=== PATIENT | female | born 1960 | race African-American/Black ===

== ENCOUNTER 2024-08-14 12:06 | Emergency (ER) | payer MEDICARE, OTHER, SELFPAY ==
[2024-08-14] VITALS (18 sets, daily range): BP systolic 148–219; BP diastolic 75–106; PULSE 99–105; RESP 18; TEMP 36.4; O2SAT 98–100; BMI 28.4
--- NOTE | 2024-08-14 12:31 | DI.MRI.S_ITS ---
PROCEDURE: MR HEAD/BRAIN WO CON INDICATIONS: L leg weak, ? CVA 1 month ago TECHNIQUE: Non-contrast axial T1 spin echo, axial T2 fast spin echo, sagittal and axial FLAIR, coronal T2 fast spin echo, axial gradient echo, axial diffusion and ADC through the brain. COMPARISON: None. FINDINGS: Image quality: Excellent. CSF spaces: Ventricles appear symmetric in size and shape. Basal cisterns are patent. No extra-axial fluid collections. Brain: No intracranial bleeds or mass effects. There is cerebral volume loss for age. There are periventricular and deep white matter chronic small vessel ischemic changes. Brainstem appears normal. Diffusion-weighted images show no acute infarct. No chronic ischemic insults. Normal intravascular flow voids are present. Skull and face: Calvarial bone marrow is normal in signal. Orbits are normal. Sinuses: Sinuses and mastoids are clear. IMPRESSION: 1. No acute infarction. No intracranial bleed, midline shift or mass effect. 2. Age related volume loss and mild white matter chronic small vessel ischemic changes. Dictated by: Rodrick Douglass M.D. on 08/14/2024 at 14:01 Approved by: Rodrick Douglass M.D. on 08/14/2024 at 14:02
[2024-08-14 12:57] LABS: Add Manual Diff / Slide Review NO; Basophils Absolute Auto 100 /uL (0-100); Eosinophils Absolute Auto 100 /uL (0-450); Eosinophils Percent Auto 2.6 % (2-4); Hematocrit 29.6 % (36-46); Hemoglobin 9.8 g/dL (12.0-16.0); Lymphocytes Absolute Auto 1500 /uL (1100-4500); Lymphocytes Percent Auto 27.2 % (25-40); Mean Corpuscular HGB Conc 33.1 % (30-36); Mean Corpuscular Hemoglobin 28.6 PG (26-34); Mean Corpuscular Volume 86.4 fL (80-100); Monocytes Absolute Auto 400 /uL (0-900); Monocytes Percent Auto 6.6 % (3-14); Neutrophils Absolute Auto 3400 /uL (1500-7000); Neutrophils Percent Auto 62.6 % (50-75); Platelet Count 324 X10^3/uL (150-400); Red Blood Cell Count 3.42 X10^6/uL (4.0-5.2); White Blood Cell Count 5.4 X10^3/uL (4.5-11.0)
[2024-08-14] MEDS: diazePAM 10 MG/2 ML SYRINGE 5 MG IV (13:11)
[2024-08-14 13:12] LABS: Alanine Aminotransferase 18 IU/L (<35); Albumin 4.1 g/dL (3.5-5.0); Albumin Globulin Ratio 1.1 (1.0-2.8); Alkaline Phosphatase 103 U/L (38-126); Aspartate Aminotransferase 25 IU/L (14-36); BUN Creatinine Ratio 17.3 (6-22); Bilirubin Total 0.6 mg/dL (0.2-1.3); Blood Urea Nitrogen 32 mg/dL (7-17); Carbon Dioxide 23 mmol/L (22-32); Estimated Glomerular Filt Rate 30 mL/min (>60); Globulin 3.7 g/dL (1.7-4.1); HEMOLYSIS < 15 (0-50); Total Protein 7.8 g/dL (6.3-8.2)
[2024-08-14 13:14] LABS: Calcium 9.2 mg/dL (8.4-10.2); Chloride 105 mmol/L (98-107); Cholesterol 276 mg/dL (140-199); Glucose 236 mg/dL (70-99); HDL Cholesterol 49 mg/dL (40-60); LDL Cholesterol Calculated 185 mg/dL (<100); Potassium 4.3 mmol/L (3.4-5.1); Sodium 136 mmol/L (137-145); Triglycerides 211 mg/dL (35-150)
--- NOTE | 2024-08-14 13:53 | EKG_ITS ---
[place] [id number] [place] [id number] Test Date: 2024-08-14 Pat Name: Makayla Williamson Department: Room: Gender: Female Top Loader: HUSSAIN : 1960 Requested By: Order Number: [id number] Reading MD: Krzysztof Foster MD Measurements Intervals [place] Rate: 100 P: 49 UT: 152 QRS: 21 QRSD: 94 T: 99 QT: 378 QTc: 487 Interpretive Statements Normal sinus rhythm Minimal voltage criteria for LVH, may be normal variant ( [place] product ) Nonspecific ST and T wave abnormality Electronically Signed On 08-14-2024 14:39:07 PDT by Krzysztof Foster MD
--- NOTE | 2024-08-14 13:58 | ED_ITS ---
HPI - Neuro Symptoms/Deficit General Chief Complaint: Neuro Symptoms/Deficit Stated Complaint: Falling, Back pain Numbness in left leg x 2 weeks Time Seen by Provider: 08/14/24 12:07 Source: patient and family Mode of arrival: Wheelchair History of Present Illness HPI Narrative: 64-year-old woman who currently is in the middle of transferring from [facility] to Medicare and working out which provider she needs to see an who can get into. She presents today complaining of frequent falls because her left leg is giving out. This is gotten worse over the last month. She does complain of some back pain but describes it as 2/10. She has not had prior documented back injuries or previous surgeries. Apparently last year she had an incidence of strep throat that ended up requiring CT with the acute kidney injury unclear if this was due to a strep related glomerulonephritis or CT contrast allergy. We will avoid contrast for the time being. On further questioning she states that she has been having some slight word-finding difficulties does not note that her left arm has had any weakness, has slight paresthesia down the posterior portion of her left leg. As she is getting into bed, she has to physically lift up her left leg to move it into bed. No fevers, chills, abdominal pain. No recent injuries with the instability and falls that she has experienced over the last month. On Anticoagulants: No Related Data Previous Rx's ?Medication ?Instructions ?Recorded amlodipine 5 mg tablet 5 mg PO DAILY #90 tabs 08/14 oxycodone-acetaminophen 5 mg-325 1 tab PO Q6H PRN pain #14 tabs 08/14/24 mg tablet Allergies Allergy/AdvReac Type Severity Reaction Status Date / Time Iodinated Contrast Media Allergy Severe Acute Verified 08/14/24 12:21 Kidney Injury aspirin AdvReac GI Upset Verified 08/14/24 12:21 Review of Systems Review of Systems Narrative: Pertinent positive and negative findings as per HPI Hematologic/Lymphatic On Anticoagulants: No Patient History Social History Smoking Status: Never smoker Smoking Status: Never smoker Alcohol type: wine Exam Initial Vital Signs Initial Vital Signs: Vital Signs Pulse Rate 100 H 08/14/24 12:14 Blood Pressure 148/75 H 08/14/24 12:14 Pulse Oximetry 99 08/14/24 12:14 General: Healthy appearing, in no acute distress. Able to give a complete and coherent history. Well-nourished well-developed HEENT: Moist mucous membranes, normal sclera with reactive pupils, Respiratory: Lungs are clear to auscultation, no wheezing no rales no rhonchi. Full and symmetrical air movement Cardiac: Regular rate and rhythm no murmurs no bruits Abdomen: Soft, nontender, no rebound or guarding, no flank pain Skin: Warm and dry, no rashes Neurologic: Left lower extremity weakness, 4/5, slight decrease in sensation in the posterior portion of the leg. She has dorsiflexion and plantar flexion with good strength and not causing back pain. Straight leg testing is negative. Remainder of neurologic exam is unremarkable. NIH=1 due to the left leg weakness Extremities: No trauma, well perfused Psych: Cooperative, appropriate insight and affect Course Orders Ordered: ED Orders 08/14/24 12:31 MR head/brain wo con Stat Complete Blood Count AUTO DIFF Stat Comprehensive Metabolic Panel Stat Lipid Panel Stat EKG-12 Lead Stat 08/14/24 14:13 MR lumbar spine wo con Stat Discontinued Medications Amlodipine Besylate (Amlodipine 5 Mg Tablet) 5 mg PO NOW ONE Stop: 08/14/24 15:57 Last Admin: 08/14/24 16:02 Dose: 5 mg Diazepam (Diazepam 10 Mg/2 Ml Syringe) 5 mg IV NOW ONE Stop: 08/14/24 12:33 Last Admin: 08/14/24 13:11 Dose: 5 mg Documented By: Oxycodone/Acetaminophen (Oxycodone/Acetaminophen 5/325 Tablet) 1 tab PO NOW ONE Stop: 08/14/24 15:46 Last Admin: 08/14/24 15:53 Dose: 1 tab Vital Signs Vital signs: Vital Signs - 8 hr 08/14/24 12:14 08/14/24 12:14 08/14/24 12:21 Temperature 97.5 F L Pulse Rate 100 H 102 H Respiratory Rate 18 Blood Pressure 148/75 H 148/75 H Pulse Oximetry 99 99 Oxygen Delivery Method Room Air 08/14/24 12:25 08/14/24 12:25 08/14/24 12:30 Temperature Pulse Rate 105 H Respiratory Rate Blood Pressure 182/87 H 188/91 H Pulse Oximetry 100 Oxygen Delivery Method Room Air 08/14/24 12:30 08/14/24 13:00 08/14/24 13:00 Temperature Pulse Rate 100 H 103 H Respiratory Rate Blood Pressure 188/84 H Pulse Oximetry 100 98 Oxygen Delivery Method 08/14/24 13:44 08/14/24 13:45 08/14/24 13:45 Temperature Pulse Rate 104 H 102 H Respiratory Rate Blood Pressure 180/88 H Pulse Oximetry 99 100 Oxygen Delivery Method 08/14/24 14:00 08/14/24 14:00 08/14/24 14:01 Temperature Pulse Rate 102 H Respiratory Rate Blood Pressure 210/100 H 208/92 H Pulse Oximetry 100 Oxygen Delivery Method 08/14/24 14:01 08/14/24 14:02 08/14/24 14:02 Temperature Pulse Rate 101 H 101 H Respiratory Rate Blood Pressure 185/91 H Pulse Oximetry 99 100 Oxygen Delivery Method Room Air 08/14/24 14:34 08/14/24 15:00 08/14/24 15:00 Temperature Pulse Rate 101 H 103 H Respiratory Rate Blood Pressure 169/106 H Pulse Oximetry 99 100 Oxygen Delivery Method 08/14/24 15:30 08/14/24 15:30 08/14/24 15:55 Temperature Pulse Rate 101 H Respiratory Rate Blood Pressure 219/102 H 209/103 H Pulse Oximetry 99 Oxygen Delivery Method Room Air 08/14/24 15:55 Temperature Pulse Rate 99 H Respiratory Rate Blood Pressure Pulse Oximetry 98 Oxygen Delivery Method MDM - Neuro Symptoms/Deficit Lab Data 08/14/24 12:31 08/14/24 12:31 Labs: Lab Results 08/14/24 Range/Units 12:31 WBC 5.4 (4.5-11.0) X10^3/uL RBC 3.42 L (4.0-5.2) X10^6/uL Hgb 9.8 L (12.0-16.0) g/dL Hct 29.6 L (36-46) % MCV 86.4 (80-100) fL MCH 28.6 (26-34) PG MCHC 33.1 (30-36) % RDW 13.0 (11.6-14.8) % Plt Count 324 (150-400) X10^3/uL Neut % (Auto) 62.6 (50-75) % Lymph % (Auto) 27.2 (25-40) % [place] % (Auto) 6.6 (3-14) % Eos % (Auto) 2.6 (2-4) % Baso % (Auto) 1.0 (0-2) % Neut # (Auto) 3400 (4836-8697) /uL Lymph # (Auto) 1500 (8144-7830) /uL [place] # (Auto) 400 (0-900) /uL Eos # (Auto) 100 (0-450) /uL Baso # (Auto) 100 (0-100) /uL Sodium 136 L (137-145) mmol/L Potassium 4.3 (3.4-5.1) mmol/L Chloride 105 (98-107) mmol/L Carbon Dioxide 23 (22-32) mmol/L BUN 32 H (7-17) mg/dL Creatinine 1.85 H (0.52-1.04) mg/dL Estimated GFR 30 L (>60) mL/min BUN/Creatinine Ratio 17.3 (6-22) Glucose 236 H (70-99) mg/dL Calcium 9.2 (8.4-10.2) mg/dL Total Bilirubin 0.6 (0.2-1.3) mg/dL AST 25 (14-36) IU/L ALT 18 (<35) IU/L Alkaline Phosphatase 103 (38-126) U/L Total Protein 7.8 (6.3-8.2) g/dL Albumin 4.1 (3.5-5.0) g/dL Globulin 3.7 (1.7-4.1) g/dL Albumin/Globulin Ratio 1.1 (1.0-2.8) Triglycerides 211 H (35-150) mg/dL Cholesterol 276 H (140-199) mg/dL LDL Cholesterol, Calc 185 H (<100) mg/dL HDL Cholesterol 49 (40-60) mg/dL Imaging Data MRI brain: Radiologist's Impression: PROCEDURE: MR HEAD/BRAIN WO CON INDICATIONS: L leg weak, ? CVA 1 month ago TECHNIQUE: Non-contrast axial T1 spin echo, axial T2 fast spin echo, sagittal and axial FLAIR, coronal T2 fast spin echo, axial gradient echo, axial diffusion and ADC through the brain. COMPARISON: None. FINDINGS: Image quality: Excellent. CSF spaces: Ventricles appear symmetric in size and shape. Basal cisterns are patent. No extra-axial fluid collections. Brain: No intracranial bleeds or mass effects. There is cerebral volume loss for age. There are periventricular and deep white matter chronic small vessel ischemic changes. Brainstem appears normal. Diffusion-weighted images show no acute infarct. No chronic ischemic insults. Normal intravascular flow voids are present. Skull and face: Calvarial bone marrow is normal in signal. Orbits are normal. Sinuses: Sinuses and mastoids are clear. IMPRESSION: 1. No acute infarction. No intracranial bleed, midline shift or mass effect. 2. Age related volume loss and mild white matter chronic small vessel ischemic changes. Dictated by: Rodrick Douglass M.D. on 08/14/2024 at 14:01 MR Lumbar: Radiologist's Impression: PROCEDURE: MR LUMBAR SPINE WO CON INDICATIONS: progressive left leg weakness TECHNIQUE: Noncontrast sagittal T1 spin echo and T2 fast echo, sagittal STIR, and T2 fast spin echo through the lumbar spine. In cases with scoliosis, additional coronal T2 fast spin echo may be performed. COMPARISON: None. FINDINGS: Image quality: Excellent. Alignment and Curvature: There is normal bony alignment. Bone Marrow: Marrow is of normal overall signal. No acute vertebral body compression fractures. Spinal Cord: Conus medullaris terminates at the L1 level. Visualized cord demonstrates normal signal and size. Paraspinous Soft Tissues: No paravertebral masses. T12-L1: Normal appearance. L1-L2: Normal appearance. L2-L3: Bilateral facet arthrosis is seen. Mild disc desiccation. Diffuse disc bulge with mild central canal stenosis and mild left-sided neural foraminal narrowing. L3-L4: Mild disc desiccation. Bilateral facet arthrosis is seen. No significant central canal stenosis or neural foraminal narrowing. L4-L5: Disc desiccation. Broad-based disc bulge and bilateral facet arthrosis with hypertrophy of ligamentum flavum. Mild central canal stenosis and moderate bilateral neural foraminal narrowing is seen. L5-S1: There is disc desiccation. Broad-based, and more left-sided disc bulge with bilateral facet arthrosis causing moderate left-sided neural foraminal narrowing and compression of bilateral L5 nerve roots. No significant central canal stenosis. IMPRESSION: 1. 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 2. No marrow edema. No acute compression fracture or spondylolisthesis. Dictated by: Rodrick Douglass M.D. on 08/14/2024 at 15:02 MDM Narrative Medical decision making narrative: CC: Left leg weakness for a month Complicating co-morbidities: Not currently on any medications, intermittent low back pain without any previous surgeries or complications Data collected from: patient, daughter Social determinants of health that may influence the patients condition: Currently transitioning from [facility] to Medicare it sounds like she does not currently have a primary care physician Differential considered: Stroke, progressive weakness secondary to lumbar pathology with neuropathy Exam documented above, pertinent findings include: Pleasant woman no acute distress, needs to lift her leg up onto the bed, difficulty walking as she has a slight dragged with the left leg, remainder of neurologic exam is unremarkable Lab Test results independently reviewed as above. Pertinent findings: CBC shows normal white count, hemoglobin is 9.8 and 29.6. No priors for comparison, platelets are appropriate Chemistries show creatinine of 1.85, again no records are available but patient remembers hearing something about ?the 2.? In regard to renal function, glucose is elevated at 236 Elevated triglycerides total cholesterol, LDL cholesterol, HDL is 49 Independently reviewed EKG: Imaging studies independently reviewed: MR brain Diffusion-weighted images show no acute infarct. No chronic ischemic insults. Normal intravascular flow voids are present. MR lumbar spine . 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 No marrow edema. No acute compression fracture or spondylolisthesis. Treatments: 5 mg of amlodipine, 1 Percocet Discussion: 64-year-old woman who comes in complaining of month of progressive left lower extremity weakness to the point that shift to lift her leg up to move onto the bed. She is having some low back pain but not dramatic. In further questioning there was concern that she may have had a stroke. MRI of the brain does not confirm new or old stroke. Attention then went to lumbar spine pathology causing the progressive paresthesia and weakness of the left lower extremity. MRI of the lumbar spine does suggest enough pathology to explain the we can left lower extremity. There was no indication for acute surgical intervention, and no indication of cauda equina syndrome. She does need outpatient spinal orthopedic consultation sooner rather than later. In terms of additional follow up: You need to establish primary care physician, you can call [facility] at [phone], explain your insurance coverage and see who might have open spaces available Your blood pressure is significantly elevated, you need to be back on blood pressure medication. I have given you a prescription for amlodipine 5 mg daily. You need to buy a blood pressure cuff and check your blood pressures on a regular basis to review with your new primary care physician. Your kidney function shows some kidney injury. You need to discuss this with your new primary care doctor. I would recommend avoiding nonsteroidals like Aleve or ibuprofen Your blood sugar is elevated, you likely will benefit from further evaluation and medical treatment for your type 2 diabetes. In the meantime avoiding obvious simple sugars like soda and juice can be helpful Regarding the back pain, I have given you a small prescription for Percocet. We talked about addictive potential. Having somebody else hold the medication for you so that discussion can be had when you feel pain is enough to have a narcotic medication can be helpful. It will cause constipation, please by a stool softener when you meat pickler this prescription I would strongly recommend using a cane so that you do not fall due to your left leg being weak You need to see a orthopedic surgeon or radiologic electronic specialist. [facility] does have spine specialists available, you can contact them at [phone] and asked to schedule an appointment with a radiologic electronic specialist. Please let them know that you have had a lumbar MRI at [facility] There are spine specialists in [facility], feel free to look up those clinics if you are unable to schedule an appointment at [facility] Discharge Plan Departure Patient Disposition: Home Clinical Impression: Left leg weakness, Falling, Hypertension, Chronic kidney disease, Hyperlipidemia Activity Restrictions/Additional Instructions: In terms of additional follow up: You need to establish primary care physician, you can call [facility] at [phone], explain your insurance coverage and see who might have open spaces available Your blood pressure is significantly elevated, you need to be back on blood pressure medication. I have given you a prescription for amlodipine 5 mg daily. You need to buy a blood pressure cuff and check your blood pressures on a regular basis to review with your new primary care physician. Your kidney function shows some kidney injury. You need to discuss this with your new primary care doctor. I would recommend avoiding nonsteroidals like Aleve or ibuprofen Your blood sugar is elevated, you likely will benefit from further evaluation and medical treatment for your type 2 diabetes. In the meantime avoiding obvious simple sugars like soda and juice can be helpful Regarding the back pain, I have given you a small prescription for Percocet. We talked about addictive potential. Having somebody else hold the medication for you so that discussion can be had when you feel pain is enough to have a narcotic medication can be helpful. It will cause constipation, please by a stool softener when you meat pickler this prescription I would strongly recommend using a cane so that you do not fall due to your left leg being weak You need to see a orthopedic surgeon or radiologic electronic specialist. [facility] does have spine specialists available, you can contact them at [phone] and asked to schedule an appointment with a radiologic electronic specialist. Please let them know that you have had a lumbar MRI at [facility] There are spine specialists in [facility], feel free to look up those clinics if you are unable to schedule an appointment at [facility] All prescriptions were sent to [facility] in [place] If you find that you are getting worse or develop any new symptoms, please feel free to return to the emergency department for further evaluation. Prescriptions: New oxycodone-acetaminophen 5-325 mg tablet 1 tab PO Q6H PRN (Reason: pain) Qty: 14 0RF amlodipine 5 mg tablet 5 mg PO DAILY Qty: 90 1RF Referrals: ProviderZechariah [Primary Care Provider, Family Practice] Stand Alone Forms: Patient Portal/API
--- NOTE | 2024-08-14 14:03 | PC.NURSE ---
BP 185/91, Dr Butler notified.
--- NOTE | 2024-08-14 14:13 | DI.MRI.S_ITS ---
PROCEDURE: MR LUMBAR SPINE WO CON INDICATIONS: progressive left leg weakness TECHNIQUE: Noncontrast sagittal T1 spin echo and T2 fast echo, sagittal STIR, and T2 fast spin echo through the lumbar spine. In cases with scoliosis, additional coronal T2 fast spin echo may be performed. COMPARISON: None. FINDINGS: Image quality: Excellent. Alignment and Curvature: There is normal bony alignment. Bone Marrow: Marrow is of normal overall signal. No acute vertebral body compression fractures. Spinal Cord: Conus medullaris terminates at the L1 level. Visualized cord demonstrates normal signal and size. Paraspinous Soft Tissues: No paravertebral masses. T12-L1: Normal appearance. L1-L2: Normal appearance. L2-L3: Bilateral facet arthrosis is seen. Mild disc desiccation. Diffuse disc bulge with mild central canal stenosis and mild left-sided neural foraminal narrowing. L3-L4: Mild disc desiccation. Bilateral facet arthrosis is seen. No significant central canal stenosis or neural foraminal narrowing. L4-L5: Disc desiccation. Broad-based disc bulge and bilateral facet arthrosis with hypertrophy of ligamentum flavum. Mild central canal stenosis and moderate bilateral neural foraminal narrowing is seen. L5-S1: There is disc desiccation. Broad-based, and more left-sided disc bulge with bilateral facet arthrosis causing moderate left-sided neural foraminal narrowing and compression of bilateral L5 nerve roots. No significant central canal stenosis. IMPRESSION: 1. 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 2. No marrow edema. No acute compression fracture or spondylolisthesis. Dictated by: Rodrick Douglass M.D. on 08/14/2024 at 15:02 Approved by: Rodrick Douglass M.D. on 08/14/2024 at 15:27
--- NOTE | 2024-08-14 15:44 | PC.NURSE ---
pt having back pain, notified.
[2024-08-14] MEDS: OXYCODONE/ACETAMINOPHEN 5/325 TABLET 1 TAB PO (15:53)
--- NOTE | 2024-08-14 15:57 | PC.NURSE ---
BP 209/103, Dr Butler notified.
[2024-08-14] MEDS: AMLODIPINE 5 MG TABLET PO (16:02)
== END 2024-08-14 17:03 | disposition home or self-care (01) ==
PROVIDERS: Emergency Provider Emergency Medicine
DX: R53.1 Weakness (principal); I10 Essential (primary) hypertension; R29.6 Repeated falls; N18.9 Chronic kidney disease, unspecified; E78.5 Hyperlipidemia, unspecified
CPT/HCPCS: 36415; 70551; 72148; 80053; 80061; 85025; 93005; 93010; 96374; 99284; J3360

== ENCOUNTER 2024-09-19 15:11 | Emergency (ER) | payer MEDICARE, OTHER, SELFPAY ==
[2024-09-19 15:24] VITALS: BP 182/96; PULSE 101; RESP 16; TEMP 36.4; O2SAT 100; BMI 25.0
--- NOTE | 2024-09-19 17:40 | DI.RAD.S_ITS ---
PROCEDURE: XR KNEE LT 3V INDICATIONS: swelling TECHNIQUE: 3 views of the knee were acquired. COMPARISON: None. FINDINGS: Bones: No fractures or dislocations. No suspicious bony lesions. Soft tissues: No joint effusion. No suspicious soft tissue calcifications. Moderate to heavy peripheral vascular calcification noted. IMPRESSION: No acute bony abnormality or significant effusion. Dictated by: Mary Erickson M.D. on 09/19/2024 at 19:05 Approved by: Mary Erickson M.D. on 09/19/2024 at 19:06
[2024-09-19] MEDS: OXYCODONE/ACETAMINOPHEN 5/325 TABLET 1 TAB PO (19:03)
--- NOTE | 2024-09-19 19:06 | ED_ITS ---
<Statement entered by Sd Cason MD - 10/11/24 07:32> I was personally available for consultation in the Department at the time the patient was seen HPI - Fall General Chief Complaint: Fall Stated Complaint: back pain, hard to walk-fell Time Seen by Provider: 09/19/24 17:10 Source: patient Mode of arrival: Ambulatory History of Present Illness HPI Narrative: 64-year-old female presents to the ED after 2 falls yesterday when her left knee gave out. Patient did fall on her knee, is having trouble with the knee constantly giving out. Patient is also complaining of continued lower back pain. No other new trauma or injury. Patient was seen in the ED on 08/14/2024 for lower back pain and knee pain. It appears that she is functionally today about the same as she was during that visit. She had an MRI of the lumbar spine which showed spondylitic changes and bilateral facet arthrosis throughout lumbar spine causing various degrees of central and canal stenosis and bilateral neural foraminal narrowing more notably at L4-5 and L5-S1 levels. No marrow edema. No acute compression fracture or spondylolisthesis. Patient is discharged home with pain control and recommendation for PC follow-up for further evaluation. Patient is in the process of trying to find a PCP and is requesting a list of providers today. Patient does endorse numbness, tingling which is baseline for her and not new. Related Data Previous Rx's ?Medication ?Instructions ?Recorded amlodipine 5 mg tablet 5 mg PO DAILY #90 tabs 08/14 oxycodone-acetaminophen 5 mg-325 1 tab PO Q6H PRN pain #14 tabs 08/14/24 mg tablet oxycodone-acetaminophen 5 mg-325 1 tab PO Q8H PRN pain #14 tabs 09/19/24 mg tablet (Percocet) Allergies Allergy/AdvReac Type Severity Reaction Status Date / Time Iodinated Contrast Media Allergy Severe Acute Verified 09/19/24 15:27 Kidney Injury empagliflozin (From Allergy Vomiting Verified 09/19/24 15:27 Jardiance) insulin lispro (From Humalog Allergy syncope Verified 09/19/24 15:27 U-100 Insulin) aspirin AdvReac GI Upset Verified 09/19/24 15:27 Review of Systems Constitutional Constitutional: Denies chills, Denies fatigue, Denies fever(s), Denies frequent falls, Denies lethargy and Denies weakness Eyes Eyes: Denies change in vision, Denies eye discharge, Denies irritation and Denies loss of vision ENT Ears, Nose, Mouth, and Throat: Denies change in voice, Denies dizziness, Denies neck pain, Denies sore throat and Denies throat swelling Cardiovascular Cardiovascular: Denies chest pain, Denies irregular heart rhythm, Denies lightheadedness, Denies palpitations, Denies dyspnea, Denies dyspnea on exertion and Denies orthopnea Respiratory Respiratory: Denies cough, Denies dyspnea, Denies dyspnea on exertion and Denies wheezing Gastrointestinal Gastrointestinal: Denies abdominal pain, Denies change in bowel habits, Denies diarrhea, Denies nausea and Denies vomiting Musculoskeletal Musculoskeletal: Reports back pain, Denies neck pain and Denies numbness Comments: Left knee pain Integumentary/Breasts Skin/Breast: Denies pruritus, Denies erythema, Denies rash and Denies wounds Neurologic Neurologic: Denies behavioral changes, Denies confusion, Denies dizziness, Denies frequent falls, Denies loss of vision, Denies numbness and Denies weakness Psychiatric Psychiatric: Denies anxiety, Denies behavioral changes, Denies confusion, Denies depression, Denies homicidal ideation and Denies suicidal ideation Endocrine Endocrine: Denies fatigue, Denies flushing and Denies palpitations Hematologic/Lymphatic Hematologic/Lymphatic: Denies easy bruising Allergic/Immunologic Allergic/Immunologic: Denies urticaria, Denies throat swelling and Denies wheezing Patient History Smoking Status: Never smoker Alcohol type: wine Exam Narrative Exam Narrative: Const General:?cooperative, healthy appearing and comfortable [facility] Head:?normal to inspection Ears:?hearing grossly normal bilaterally Nose:?external nose normal Face and sinus:?normal facial exam and sinuses nontender Mouth:?oral mucosae normal Throat:?posterior oropharynx normal Eyes General:?appearance normal, both eyes and all related structures Neck Neck:?normal visual inspection and no lymphadenopathy noted Resp Effort & Inspection:?normal respiratory effort Auscultation:?clear to auscultation bilaterally Cardio Rate:?regular rate Rhythm:?regular rhythm Musculoskeletal No knee swelling, tenderness to palpation, deformities, bruising noted on exam. Patient is having knee and is having to lift it up with her are hands. However, this is baseline for her for a long time. No midline tenderness to palpation. No paraspinal tenderness to palpation. Neuro General:?patient alert, patient awake and patient oriented x3 Initial Vital Signs Initial Vital Signs: Vital Signs Temperature 97.6 F 09/19/24 15:24 Pulse Rate 101 H 09/19/24 15:24 Respiratory Rate 16 09/19/24 15:24 Blood Pressure 182/96 H 09/19/24 15:24 Pulse Oximetry 100 09/19/24 15:24 Oxygen Delivery Method Room Air 09/19/24 15:24 Course Orders Ordered: ED Orders 09/19/24 17:40 XR knee LT 3V Stat Discontinued Medications Oxycodone/Acetaminophen (Oxycodone/Acetaminophen 5/325 Tablet) 1 tab PO NOW ONE Stop: 09/19/24 18:58 Last Admin: 09/19/24 19:03 Dose: 1 tab Documented By: MEKA Vital Signs Vital signs: Vital Signs - 8 hr 09/19/24 15:24 Temperature 97.6 F Pulse Rate 101 H Respiratory Rate 16 Blood Pressure 182/96 H Pulse Oximetry 100 Oxygen Delivery Method Room Air MDM - Fall MDM Narrative Medical decision making narrative: 64-year-old female presents to the ED after 2 falls yesterday when her left knee gave out. Will x-ray the knee to rule out fracture/dislocation. Otherwise, patient's functionality is at the same level with no further regression. Patient has been given resources for finding a new PCP. Pain medication prescribed. ED return precautions discussed with patient. Patient verbalized understanding. Medical records reviewed: Yes Discharge Plan Departure Patient Disposition: Home Clinical Impression: Knee pain Qualifiers: Chronicity: chronic Laterality: left Qualified Code(s): M25.562 - Pain in left knee Instructions: DI for Low Back Pain, How to Prevent Falls Activity Restrictions/Additional Instructions: You were evaluated in the emergency department for back and knee pain. Your x- ray was normal. You are being prescribed some pain medication. You have also been provided some resources to find a new primary care provider for follow-up. Return to the ED if you have worsening symptoms. Prescriptions: New oxycodone-acetaminophen [Percocet] 5-325 mg tablet 1 tab PO Q8H PRN (Reason: pain) Qty: 14 0RF No Action oxycodone-acetaminophen 5-325 mg tablet 1 tab PO Q6H PRN (Reason: pain) Qty: 14 0RF amlodipine 5 mg tablet 5 mg PO DAILY Qty: 90 1RF Referrals: ProviderZechariah [Primary Care Provider, Family Practice] Stand Alone Forms: Patient Portal/API
[2024-09-19 19:25] VITALS: BP 207/102; PULSE 105; RESP 17; O2SAT 100
== END 2024-09-19 19:33 | disposition home or self-care (01) ==
PROVIDERS: Emergency Provider Student in an Organized Health Care Education/Training Program
DX: M25.562 Pain in left knee (principal); W19.XXXA Unspecified fall, initial encounter
CPT/HCPCS: 73562; 99283

== ENCOUNTER 2024-12-05 16:12 | Emergency (ER) | payer MEDICARE, OTHER, SELFPAY ==
[2024-12-05] VITALS (20 sets, daily range): BP systolic 142–204; BP diastolic 72–98; PULSE 91–109; RESP 12–22; TEMP 36.8; O2SAT 97–100; BMI 26.3
--- NOTE | 2024-12-05 16:21 | DI.RAD.S_ITS ---
PROCEDURE: XR CHEST 1V INDICATIONS: Chest Pain TECHNIQUE: One view of the chest was acquired. COMPARISON: None. FINDINGS: Surgical changes and devices: None. Lungs and pleura: Lungs are clear. No pleural effusions or pneumothorax. Mediastinum: Mediastinal contours appear normal. Heart size is normal. Bones and chest wall: No suspicious bony lesions. Overlying soft tissues appear unremarkable. IMPRESSION: No acute cardiopulmonary abnormality is seen. Dictated by: Travis Ybarar M.D. on 12/05/2024 at 17:31 Approved by: Travis Ybarra M.D. on 12/05/2024 at 17:31
--- NOTE | 2024-12-05 16:33 | EKG_ITS ---
[address] [address] Test Date: 2024-12-05 Pat Name: Makayla Williamson Department: [facility] Room: Gender: Female [employer]: OMER : [id number] Requested By: Order Number: [id number] Reading MD: Krzysztof Foster MD Measurements Intervals [place] Rate: 107 P: 46 WV: 114 QRS: 25 QRSD: 98 T: 74 QT: 364 QTc: 485 Interpretive Statements Sinus tachycardia Electronically Signed On 12-05-2024 16:45:15 PDT by Krzysztof Foster MD
[2024-12-05 17:00] LABS: Add Manual Diff / Slide Review NO; Hematocrit 28.4 % (36-46); Hemoglobin 9.5 g/dL (12.0-16.0); Lymphocytes Absolute Auto 2500 /uL (1100-4500); Mean Corpuscular HGB Conc 33.4 % (30-36); Mean Corpuscular Hemoglobin 29.0 PG (26-34); Mean Corpuscular Volume 86.7 fL (80-100); Platelet Count 327 X10^3/uL (150-400)
[2024-12-05 17:09] LABS: INR 1.0 (0.9-1.3); Prothrombin Time 11.3 SECONDS (9.4-12.5)
[2024-12-05 17:11] LABS: PTT Partial Thromboplastin Tim 33 SECONDS (25.1-36.5)
[2024-12-05 17:13] LABS: Alanine Aminotransferase 27 IU/L (<35); Albumin 4.5 g/dL (3.5-5.0); Albumin Globulin Ratio 1.1 (1.0-2.8); Alkaline Phosphatase 80 U/L (38-126); Blood Urea Nitrogen 37 mg/dL (7-17); Calcium 9.6 mg/dL (8.4-10.2); Carbon Dioxide 21 mmol/L (22-32); Chloride 102 mmol/L (98-107); Creatine Kinase 69 U/L (30-135); Estimated Glomerular Filt Rate 32 mL/min (>60); Globulin 4.0 g/dL (1.7-4.1); Glucose 123 mg/dL (70-99); HEMOLYSIS < 15 (0-50); Lipase 363 U/L (23-300); Magnesium 2.4 mg/dL (1.6-2.3); Potassium 4.4 mmol/L (3.4-5.1); Sodium 136 mmol/L (137-145); Total Protein 8.5 g/dL (6.3-8.2)
--- NOTE | 2024-12-05 17:18 | PC.NURSE ---
Patient experiencing left leg weakness and unable to ambulate. Swelling noted to both legs.
--- NOTE | 2024-12-05 17:24 | PC.NURSE ---
Patient was eating popcorn. Pt informed to not eat until the doctor sees her. NPO at 1725.
[2024-12-05 17:25] LABS: NT-proBNP (BNP-Adult 18+) 299 pg/mL (<125); Troponin I < 0.012 ng/mL (0.01-0.034)
--- NOTE | 2024-12-05 17:33 | ED.WEAKNESS ---
HPI - Weakness <Kristen Dominguez, DO - Last Filed: 12/08/24 20:34> General Chief complaint: Weakness Stated complaint: Cant walk, hands weak, Lt leg numb, Rt leg is weak Time Seen by Provider: 12/05/24 16:19 Source: patient, family, RN notes reviewed and old records reviewed Mode of arrival: Wheelchair Limitations: no limitations History of Present Illness HPI Narrative: 64-year-old female with a history of hypertension, possible prior glomerular nephritis versus CT cross dressed allergy. Patient presents with the acute on chronic back pain that radiates down her left leg now of the right. She notes increasing difficulty with ambulation and can no longer lift or move her left lower extremity. She states pain in her left leg has improved but she still has paresthesias and numbness. She notes does still have some right lower extremity pain but can use that leg and still has some strength but has some difficulty standing. She states family has been assisting her this week to get even to the bathroom. She states she was walking normally a proximally a week ago. Initial onset of back pain and symptoms was in June or July she did have an MRI at that time and was started on gabapentin. Patient states no fevers or chills. No headaches, she denies any chest pain or shortness of breath. No new speech changes no nausea or vomiting. She denies any saddle anesthesia, new bowel or bladder incontinence. She notes feels like she has a little bit of weakness in her hands but has been moving her arms without issue she states she does sometimes drop objects. Patient states home medications include amlodipine, gabapentin and Percocet PRN. She states she has had prior cerclage, tubal ligation, cataract surgery but no back or brain surgeries in the past. Reports an allergy to contrast dye that she had loss of renal function [address]. Reports an allergy to aspirin, Humalog and Jardiance. No tobacco, alcohol or recreational drugs. Related Data Previous Rx's ?Medication ?Instructions ?Recorded amlodipine 5 mg tablet 5 mg PO DAILY #90 tabs 08/14/24 DISABLED PARKING PERMIT #1 ea 10/04/24 DISABLED PARKING PERMIT #1 ea 10/04/24 oxycodone-acetaminophen 10 mg-325 1 tab PO Q6H PRN pain #20 tabs 12/07/24 mg tablet Allergies Allergy/AdvReac Type Severity Reaction Status Date / Time Iodinated Contrast Media Allergy Severe Acute Verified 12/05/24 16:22 Kidney Injury aspirin AdvReac GI Upset Verified 12/05/24 16:22 empagliflozin (From AdvReac Vomiting Verified 12/05/24 16:22 Jardiance) insulin lispro (From Humalog AdvReac syncope Verified 12/05/24 16:22 U-100 Insulin) Review of Systems <Kristen Dominguez DO - Last Filed: 12/08/24 20:34> Review of Systems ROS Unobtainable: All systems reviewed & are unremarkable except as noted in HPI and below Patient History <Kristen Dominguez DO - Last Filed: 12/08/24 20:34> Medical History Bilateral hand numbness Frequent falls Asthma (~1984) Partial blindness Frequent UTI Diabetic nephropathy associated with type 2 diabetes mellitus Combined hyperlipidemia associated with type 2 diabetes mellitus Diabetes type 2 Hx of colonic polyps Acute low back pain with right-sided sciatica Surgical History Anesthesia History of tubal ligation (~11/03/96) History of cataract removal with insertion of prosthetic lens (~2019) History of cervical cerclage History of tonsillectomy Family History Father Cancer Mother History of heart disease Grandfather Cancer Grandmother History of heart disease Grandfather History of heart disease Social History household members: children Smoking Status: Never smoker Smoking Status: Never smoker Alcohol type: wine Exam <Kristen Dominguez DO - Last Filed: 12/08/24 20:34> Narrative Exam Narrative: GENERAL: Alert and oriented x three, female in mild distress HEENT: Head normocephalic, atraumatic, EOMI, pupils reactive, face symmetric, moist mucous membranes NECK: Supple, full range of motion CARDIOVASCULAR: Regular rate and rhythm without murmurs, rubs or gallops. RESPIRATORY: Breath sounds equal bilaterally, no wheezes rales or rhonchi. ABDOMEN: Soft, nontender. Normoactive bowel sounds all 4 quadrants. No guarding or rebound, rigidity, no mass : No CVA tenderness BACK: No cervical, thoracic or lumbar vertebral point tenderness. Patient has decreased range of motion. Patient's gait is not tested. Rectal exam is [normal sphincter tone/decreased tone/no tone/deferred or refused]. Muscle strength is 4/5 in right lower extremity patient is not able to lift her left lower extremity off the bed and has minimal to no movement. She does have dorsiflexion plantar flexion bilaterally but is decreased on the left. Patient has sensation to some touch but decreased left compared to right. In lower extremities, DTRs are 2/4 and lower extremities. Dorsalis pedis and tibialis pulses are 2+ and lower extremities. Bilateral upper extremities patient does not have any drift, has equal push-pull, telephone order clerk are equal bilaterally. 2+ radial pulses bilaterally with sensation intact. EXTREMITIES: Normal range of motion, no clubbing or edema. NEUROLOGICAL: Cranial nerves II through XII grossly intact. Moving all extremities SKIN: Warm, dry, no petechiae, no rashes or lesions. Initial Vital Signs Initial Vital Signs: Vital Signs Temperature 98.3 F 12/05/24 16:22 Pulse Rate 109 H 12/05/24 16:22 Respiratory Rate 18 12/05/24 16:22 Blood Pressure 190/94 H 12/05/24 16:22 Pulse Oximetry 99 12/05/24 16:22 Oxygen Delivery Method Room Air 12/05/24 16:22 <Yobany Duron MD - Last Filed: 12/07/24 04:07> Initial Vital Signs Initial Vital Signs: Vital Signs Temperature 98.3 F 12/05/24 16:22 Pulse Rate 109 H 12/05/24 16:22 Respiratory Rate 18 12/05/24 16:22 Blood Pressure 190/94 H 12/05/24 16:22 Pulse Oximetry 99 12/05/24 16:22 Oxygen Delivery Method Room Air 12/05/24 16:22 <Aly Otto MD - Last Filed: 12/06/24 18:56> Initial Vital Signs Initial Vital Signs: Vital Signs Temperature 98.3 F 12/05/24 16:22 Pulse Rate 109 H 12/05/24 16:22 Respiratory Rate 18 12/05/24 16:22 Blood Pressure 190/94 H 12/05/24 16:22 Pulse Oximetry 99 12/05/24 16:22 Oxygen Delivery Method Room Air 12/05/24 16:22 Course <Kristen Dominguez, DO - Last Filed: 12/08/24 20:34> Orders Ordered: Discontinued Medications Hydrocodone Bitart/Acetaminophen (Hydrocodone/Acet 5/325 Tablet) 1 tab PO NOW ONE Stop: 12/06/24 04:13 Last Admin: 12/06/24 04:20 Dose: 1 tab Documented By: Hydrocodone Bitart/Acetaminophen (Hydrocodone/Acet 5/325 Tablet) 1 tab PO Q6HR PRN PRN Reason: pain Last Admin: 12/06/24 08:58 Dose: 1 tab Documented By: ROBB Amlodipine Besylate (Amlodipine 5 Mg Tablet) 5 mg PO NOW ONE Stop: 12/06/24 02:07 Last Admin: 12/06/24 02:09 Dose: 5 mg Documented By: Amlodipine Besylate (Amlodipine 5 Mg Tablet) 5 mg PO DAILY [facility] Last Admin: 12/06/24 09:00 Dose: 5 mg Documented By: ROBB Gabapentin (Gabapentin 100 Mg Capsule) 100 mg PO DAILY [facility] Last Admin: 12/06/24 09:03 Dose: 100 mg Documented By: ROBB Hydralazine HCl (Hydralazine 20 Mg/Ml Vial) 5 mg IV NOW ONE Stop: 12/06/24 06:07 Last Admin: 12/06/24 06:21 Dose: 5 mg Documented By: Morphine Sulfate (Morphine 4 Mg/Ml Inj) 4 mg IV NOW ONE Stop: 12/05/24 20:00 Last Admin: 12/05/24 20:02 Dose: 4 mg Documented By: GERMANIA Morphine Sulfate (Morphine 4 Mg/Ml Inj) 4 mg IV NOW ONE Stop: 12/05/24 20:58 Last Admin: 12/05/24 21:02 Dose: 4 mg Documented By: MARIELY Oxycodone/Acetaminophen (Oxycodone/Acetaminophen 5/325 Tablet) 1 tab PO NOW ONE Stop: 12/06/24 11:59 Last Admin: 12/06/24 12:04 Dose: 1 tab Documented By: MARIELY Vital Signs Vital signs: Vital Signs - 8 hr 12/06/24 11:00 12/06/24 11:00 12/06/24 14:09 Pulse Rate 104 H 104 H Respiratory Rate 16 Blood Pressure 192/93 H 171/84 H Pulse Oximetry 98 98 Oxygen Delivery Method Room Air <Yobany Duron MD - Last Filed: 12/07/24 04:07> Orders Ordered: Discontinued Medications Hydrocodone Bitart/Acetaminophen (Hydrocodone/Acet 5/325 Tablet) 1 tab PO NOW ONE Stop: 12/06/24 04:13 Last Admin: 12/06/24 04:20 Dose: 1 tab Documented By: Hydrocodone Bitart/Acetaminophen (Hydrocodone/Acet 5/325 Tablet) 1 tab PO Q6HR PRN PRN Reason: pain Last Admin: 12/06/24 08:58 Dose: 1 tab Documented By: ROBB Amlodipine Besylate (Amlodipine 5 Mg Tablet) 5 mg PO NOW ONE Stop: 12/06/24 02:07 Last Admin: 12/06/24 02:09 Dose: 5 mg Documented By: Amlodipine Besylate (Amlodipine 5 Mg Tablet) 5 mg PO DAILY [facility] Last Admin: 12/06/24 09:00 Dose: 5 mg Documented By: ROBB Gabapentin (Gabapentin 100 Mg Capsule) 100 mg PO DAILY [facility] Last Admin: 12/06/24 09:03 Dose: 100 mg Documented By: ROBB Hydralazine HCl (Hydralazine 20 Mg/Ml Vial) 5 mg IV NOW ONE Stop: 12/06/24 06:07 Last Admin: 12/06/24 06:21 Dose: 5 mg Documented By: Morphine Sulfate (Morphine 4 Mg/Ml Inj) 4 mg IV NOW ONE Stop: 12/05/24 20:00 Last Admin: 12/05/24 20:02 Dose: 4 mg Documented By: GERMANIA Morphine Sulfate (Morphine 4 Mg/Ml Inj) 4 mg IV NOW ONE Stop: 12/05/24 20:58 Last Admin: 12/05/24 21:02 Dose: 4 mg Documented By: MARIELY Oxycodone/Acetaminophen (Oxycodone/Acetaminophen 5/325 Tablet) 1 tab PO NOW ONE Stop: 12/06/24 11:59 Last Admin: 12/06/24 12:04 Dose: 1 tab Documented By: MARIELY Vital Signs Vital signs: Vital Signs - 8 hr 12/06/24 11:00 12/06/24 11:00 12/06/24 14:09 Pulse Rate 104 H 104 H Respiratory Rate 16 Blood Pressure 192/93 H 171/84 H Pulse Oximetry 98 98 Oxygen Delivery Method Room Air <Aly Otto MD - Last Filed: 12/06/24 18:56> Orders Ordered: Discontinued Medications Hydrocodone Bitart/Acetaminophen (Hydrocodone/Acet 5/325 Tablet) 1 tab PO NOW ONE Stop: 12/06/24 04:13 Last Admin: 12/06/24 04:20 Dose: 1 tab Documented By: Hydrocodone Bitart/Acetaminophen (Hydrocodone/Acet 5/325 Tablet) 1 tab PO Q6HR PRN PRN Reason: pain Last Admin: 12/06/24 08:58 Dose: 1 tab Documented By: ROBB Amlodipine Besylate (Amlodipine 5 Mg Tablet) 5 mg PO NOW ONE Stop: 12/06/24 02:07 Last Admin: 12/06/24 02:09 Dose: 5 mg Documented By: Amlodipine Besylate (Amlodipine 5 Mg Tablet) 5 mg PO DAILY [facility] Last Admin: 12/06/24 09:00 Dose: 5 mg Documented By: ROBB Gabapentin (Gabapentin 100 Mg Capsule) 100 mg PO DAILY [facility] Last Admin: 12/06/24 09:03 Dose: 100 mg Documented By: ROBB Hydralazine HCl (Hydralazine 20 Mg/Ml Vial) 5 mg IV NOW ONE Stop: 12/06/24 06:07 Last Admin: 12/06/24 06:21 Dose: 5 mg Documented By: Morphine Sulfate (Morphine 4 Mg/Ml Inj) 4 mg IV NOW ONE Stop: 12/05/24 20:00 Last Admin: 12/05/24 20:02 Dose: 4 mg Documented By: GERMANIA Morphine Sulfate (Morphine 4 Mg/Ml Inj) 4 mg IV NOW ONE Stop: 12/05/24 20:58 Last Admin: 12/05/24 21:02 Dose: 4 mg Documented By: MARIELY Oxycodone/Acetaminophen (Oxycodone/Acetaminophen 5/325 Tablet) 1 tab PO NOW ONE Stop: 12/06/24 11:59 Last Admin: 12/06/24 12:04 Dose: 1 tab Documented By: MARIELY Vital Signs Vital signs: Vital Signs - 8 hr 12/06/24 11:00 12/06/24 11:00 12/06/24 14:09 Pulse Rate 104 H 104 H Respiratory Rate 16 Blood Pressure 192/93 H 171/84 H Pulse Oximetry 98 98 Oxygen Delivery Method Room Air MDM - Weakness <Kristen Dominguez, DO - Last Filed: 12/08/24 20:34> Lab Data 12/05/24 16:53 12/05/24 16:53 Labs: Lab Results 12/05/24 Range/Units 16:53 WBC 7.3 (4.5-11.0) X10^3/uL RBC 3.28 L (4.0-5.2) X10^6/uL Hgb 9.5 L (12.0-16.0) g/dL Hct 28.4 L (36-46) % MCV 86.7 (80-100) fL MCH 29.0 (26-34) PG MCHC 33.4 (30-36) % RDW 12.8 (11.6-14.8) % Plt Count 327 (150-400) X10^3/uL Neut % (Auto) 51.6 (50-75) % Lymph % (Auto) 34.0 (25-40) % Mayes % (Auto) 9.8 (3-14) % Eos % (Auto) 3.8 (2-4) % Baso % (Auto) 0.8 (0-2) % Neut # (Auto) 3800 (1651-1650) /uL Lymph # (Auto) 2500 (5280-0428) /uL Mayes # (Auto) 700 (0-900) /uL Eos # (Auto) 300 (0-450) /uL Baso # (Auto) 100 (0-100) /uL ESR 66 H (0-20) MM/HR PT 11.3 (9.4-12.5) SECONDS INR 1.0 (0.9-1.3) APTT 33 (25.1-36.5) SECONDS Sodium 136 L (137-145) mmol/L Potassium 4.4 (3.4-5.1) mmol/L Chloride 102 (98-107) mmol/L Carbon Dioxide 21 L (22-32) mmol/L BUN 37 H (7-17) mg/dL Creatinine 1.77 H (0.52-1.04) mg/dL Estimated GFR 32 L (>60) mL/min BUN/Creatinine Ratio 20.9 (6-22) Glucose 123 H (70-99) mg/dL Calcium 9.6 (8.4-10.2) mg/dL Magnesium 2.4 H (1.6-2.3) mg/dL Total Bilirubin 0.6 (0.2-1.3) mg/dL AST 32 (14-36) IU/L ALT 27 (<35) IU/L Alkaline Phosphatase 80 (38-126) U/L Total Creatine Kinase 69 (30-135) U/L Troponin I < 0.012 (0.01-0.034) ng/mL C-Reactive Protein < 0.5 (<1.0) mg/dL NT-Pro-B Natriuret Pep 299 H (<125) pg/mL Total Protein 8.5 H (6.3-8.2) g/dL Albumin 4.5 (3.5-5.0) g/dL Globulin 4.0 (1.7-4.1) g/dL Albumin/Globulin Ratio 1.1 (1.0-2.8) Lipase 363 H (23-300) U/L ECG Data Attestation: I personally reviewed and interpreted this ECG as follows: Interpretation: Sinus tachycardia rate of 107 MN 114 QRS of 98 QTC of 485. No acute ST-elevation or depression. MDM Narrative Medical decision making narrative: Labs show normal white count of 7.3 hemoglobin is 9.5 consistent with priors platelets are 327. Coags are negative, sodium 136, creatinine is 1.77 with a creatinine of 1.85 in September of 2024. BUN 37 CO2 is 21 glucose is 123, Mag is 2.4 LFTs are normal troponins less than 0.012 with a BNP of 299 and total protein 8.5 lipase is 363. Patient had lumbar spine MR and 07/18/2024 that showed spondylotic changes and bilateral facet arthrosis throat lumbar spine causing first-degree central canal stenosis and bilateral neural foraminal narrowing more notably L4-5 and L5-S1 levels. No marrow edema. No acute compression fracture spondylolisthesis. Patient has mood central canal stenosis at L2-L3 and L4-L5 on MR imaging from July of 2024. Repeat MRI today shows degenerative changes lumbar spine patient has small disc bulge moderate facet and ligamentum flavum hypertrophy [id number] left neural foraminal stenosis no spinal canal stenosis at L2-L3 disc bulge and mild facet and ligamentum flavum hypertrophy mild left neuroforaminal narrowing no spinal canal stenosis. L4-L5 disc bulge with moderate facet and ligament flavum hypertrophy no spinal canal or neural foraminal stenosis. L5-S1 disc bulge with facet and ligamentum flavum hypertrophy causing moderate to severe left foraminal narrowing, mild right neural foraminal narrowing no spinal canal stenosis. Patient has had slowly progressive symptoms based on having pain in her back and her exam L-spine MR was obtained. Patient has had several doses of pain medication Patient's MRI does not show a severe spinal canal stenosis but patient's symptoms are quite significant. Patient does have severe left foraminal narrowing could fit with the patient's significant weakness in his left lower extremity although she notes some discomfort on the right as what. Consult with Orthopedic spinal surgery Dr. Curiel with [facility] at a [phone]. Reviewed patient's physical findings, MR findings he states these are not consistent with her physical exam he would recommend imaging higher up in the spine for further evaluation. Discussed with the patient she is agreeable to board overnight we will obtain head CT initially to make sure no other acute changes and if this is negative we will proceed with the additional MR. Patient signed out to Dr. Duron while awaiting further imaging. <Yobany Duron MD - Last Filed: 12/07/24 04:07> Lab Data Labs: Lab Results 12/05/24 Range/Units 16:53 WBC 7.3 (4.5-11.0) X10^3/uL RBC 3.28 L (4.0-5.2) X10^6/uL Hgb 9.5 L (12.0-16.0) g/dL Hct 28.4 L (36-46) % MCV 86.7 (80-100) fL MCH 29.0 (26-34) PG MCHC 33.4 (30-36) % RDW 12.8 (11.6-14.8) % Plt Count 327 (150-400) X10^3/uL Neut % (Auto) 51.6 (50-75) % Lymph % (Auto) 34.0 (25-40) % Mayes % (Auto) 9.8 (3-14) % Eos % (Auto) 3.8 (2-4) % Baso % (Auto) 0.8 (0-2) % Neut # (Auto) 3800 (1215-2217) /uL Lymph # (Auto) 2500 (9271-5699) /uL Mayes # (Auto) 700 (0-900) /uL Eos # (Auto) 300 (0-450) /uL Baso # (Auto) 100 (0-100) /uL ESR 66 H (0-20) MM/HR PT 11.3 (9.4-12.5) SECONDS INR 1.0 (0.9-1.3) APTT 33 (25.1-36.5) SECONDS Sodium 136 L (137-145) mmol/L Potassium 4.4 (3.4-5.1) mmol/L Chloride 102 (98-107) mmol/L Carbon Dioxide 21 L (22-32) mmol/L BUN 37 H (7-17) mg/dL Creatinine 1.77 H (0.52-1.04) mg/dL Estimated GFR 32 L (>60) mL/min BUN/Creatinine Ratio 20.9 (6-22) Glucose 123 H (70-99) mg/dL Calcium 9.6 (8.4-10.2) mg/dL Magnesium 2.4 H (1.6-2.3) mg/dL Total Bilirubin 0.6 (0.2-1.3) mg/dL AST 32 (14-36) IU/L ALT 27 (<35) IU/L Alkaline Phosphatase 80 (38-126) U/L Total Creatine Kinase 69 (30-135) U/L Troponin I < 0.012 (0.01-0.034) ng/mL C-Reactive Protein < 0.5 (<1.0) mg/dL NT-Pro-B Natriuret Pep 299 H (<125) pg/mL Total Protein 8.5 H (6.3-8.2) g/dL Albumin 4.5 (3.5-5.0) g/dL Globulin 4.0 (1.7-4.1) g/dL Albumin/Globulin Ratio 1.1 (1.0-2.8) Lipase 363 H (23-300) U/L Imaging Data MRI lumbar spine noncontrast: Radiologist Impression: [address] [address] Magnetic Resonance Report Signed Patient: Makayla Williamson MR#: [id number] : 1960 Acct:[id number] Age/Sex: 64 / F Date of Service: 12/05/24 Loc: ED Accession Number: [id number] Procedure: MR lumbar spine wo con Ordering Provider: Kristen Dominguez D.O. PROCEDURE: MR LUMBAR SPINE WO CON INDICATIONS: back pain, loss of sensation, no movement left leg. TECHNIQUE: Noncontrast sagittal T1 spin echo and T2 fast echo, sagittal STIR, and T2 fast spin echo through the lumbar spine. In cases with scoliosis, additional coronal T2 fast spin echo may be performed. COMPARISON: [facility], , MR LUMBAR SPINE WO CON, 08/14/2024, 14:09. FINDINGS: Image quality: Diagnostic Alignment and Curvature: Trace retrolisthesis of L5 on S1. Bone Marrow: Marrow is of normal overall signal. No acute vertebral body compression fractures. Spinal Cord: Conus medullaris terminates at the superior L2 level. Visualized cord demonstrates normal signal and size. Paraspinous Soft Tissues: No paravertebral masses. T12-L1: No spinal canal or neural foraminal stenosis. L1-L2: No spinal canal or neural foraminal stenosis. L2-L3: Small disc bulge and moderate facet and ligamentum flavum hypertrophy. Mild right and moderate left neural foraminal stenosis. No spinal canal stenosis. L3-L4: Disc bulge and mild facet and ligamentum flavum hypertrophy. Mild left neural foraminal narrowing. No spinal canal stenosis. L4-L5: Disc bulge with moderate facet and ligamentum flavum hypertrophy. No spinal canal or neural foraminal stenosis. L5-S1: Disc bulge with facet and ligamentum flavum hypertrophy causing moderate to severe left neural foraminal narrowing. Mild right neural foraminal narrowing. No spinal canal stenosis. IMPRESSION: Degenerate changes of the lumbar spine as above, with findings most significant at L5-S1 where there is moderate to severe left neural foraminal narrowing with flattening of the nerve root within the foramen. Dictated by: Sara Guadarrama M.D. on 12/05/2024 at 21:28 Approved by: Sara Guadarrama M.D. on 12/05/2024 at 21:39 CT scan - head: Radiologist Impression: [address] [address] [address] Scan Report Signed Patient: Makayla Williamson MR#: [id number] : 1960 Acct:[id number] Age/Sex: 64 / F Date of Service: 12/05/24 Loc: ED Accession Number: [id number] Procedure: CT head/brain wo con Ordering Provider: Kristen Dominguez D.O. PROCEDURE: CT HEAD/BRAIN WO CON INDICATIONS: Left weakness, difficulty walking, + pain, paresthesias, gri TECHNIQUE: Noncontrast 4.5 mm thick angled axial sections acquired from the foramen magnum to the vertex, with coronal and sagittal reformats. For radiation dose reduction, the following was used: automated exposure control, adjustment of mA and/or kV according to patient size. COMPARISON: [facility], , MR HEAD/BRAIN WO CON, 08/14/2024, 13:17. FINDINGS: Image quality: Diagnostic. CSF spaces: Basal cisterns are patent. No extra-axial fluid collections. Ventricles are normal in size and shape. Brain: No midline shift. No intracranial mass effect or hemorrhage. Basal ganglia calcification. Medial cerebellar calcification. No area of hypodensity in a large vascular distribution to suggest acute infarction. Periventricular hypodensity consistent with chronic microvascular ischemic change. Age-related parenchymal loss. Skull and face: Calvarium and visualized facial bones are intact, without suspicious lesions. Sinuses: Ethmoid mucosal thickening. Visualized sinuses and mastoids are otherwise clear. IMPRESSION: No acute intracranial pathology. Dictated by: Viktor Chinchilla M.D. on 12/06/2024 at 0:52 Approved by: Viktor Chinchilla M.D. on 12/06/2024 at 0:55 Chest x-ray: Radiologist Impression: [place] [address] XRay Report Signed Patient: Makayla Williamson MR#: [id number] : 1960 Acct:[id number] Age/Sex: 64 / F Date of Service: 12/05/24 Loc: ED Accession Number: [id number] Procedure: XR chest 1V Ordering Provider: Kristen Dominguez D.O. PROCEDURE: XR CHEST 1V INDICATIONS: Chest Pain TECHNIQUE: One view of the chest was acquired. COMPARISON: None. FINDINGS: Surgical changes and devices: None. Lungs and pleura: Lungs are clear. No pleural effusions or pneumothorax. Mediastinum: Mediastinal contours appear normal. Heart size is normal. Bones and chest wall: No suspicious bony lesions. Overlying soft tissues appear unremarkable. IMPRESSION: No acute cardiopulmonary abnormality is seen. Dictated by: Travis Ybarra M.D. on 12/05/2024 at 17:31 Approved by: Travis Ybarra M.D. on 12/05/2024 at 17:31 [facility] Narrative Medical decision making narrative: Labs show normal white count of 7.3 hemoglobin is 9.5 consistent with priors platelets are 327. Coags are negative, sodium 136, creatinine is 1.77 with a creatinine of 1.85 in September of 2024. BUN 37 CO2 is 21 glucose is 123, Mag is 2.4 LFTs are normal troponins less than 0.012 with a BNP of 299 and total protein 8.5 lipase is 363. Patient had lumbar spine MR and 07/18/2024 that showed spondylotic changes and bilateral facet arthrosis throat lumbar spine causing first-degree central canal stenosis and bilateral neural foraminal narrowing more notably L4-5 and L5-S1 levels. No marrow edema. No acute compression fracture spondylolisthesis. Patient has mood central canal stenosis at L2-L3 and L4-L5 on MR imaging from July of 2024. Repeat MRI today shows degenerative changes lumbar spine patient has small disc bulge moderate facet and ligamentum flavum hypertrophy [id number] left neural foraminal stenosis no spinal canal stenosis at L2-L3 disc bulge and mild facet and ligamentum flavum hypertrophy mild left neuroforaminal narrowing no spinal canal stenosis. L4-L5 disc bulge with moderate facet and ligament flavum hypertrophy no spinal canal or neural foraminal stenosis. L5-S1 disc bulge with facet and ligamentum flavum hypertrophy causing moderate to severe left foraminal narrowing, mild right neural foraminal narrowing no spinal canal stenosis. Patient has had slowly progressive symptoms based on having pain in her back and her exam L-spine MR was obtained. Patient has had several doses of pain medication Patient's MRI does not show a severe spinal canal stenosis but patient's symptoms are quite significant. Patient does have severe left foraminal narrowing could fit with the patient's significant weakness in his left lower extremity although she notes some discomfort on the right as what. Consult with Orthopedic spinal surgery Dr. Curiel with [facility] at a [phone]. Reviewed patient's physical findings, MR findings he states these are not consistent with her physical exam he would recommend imaging higher up in the spine for further evaluation. Discussed with the patient she is agreeable to board overnight we will obtain head CT initially to make sure no other acute changes and if this is negative we will proceed with the additional MR. Patient signed out to Dr. Duron while awaiting further imaging. 11/19/24, 2300, [place]. Sign-out from Dr. Dominguez. Awaiting further imaging, CT head noncontrast scan report pending, possible MRI T-spine and cervical spine when available later tomorrow morning. 64-year-old female with acute on chronic low back pain, prior MRI of the back juneJuly 2024, no neurosurgical interventions or epidural spinal injections, no known IV drug use or cancers or trauma. For the last 1 week has worsening low back pain, with some radiation to the left leg, with paresthesias and numbness, difficulty standing and walking, some weakness to the left leg on raise testing. Also admits to some weakness in both hands but has been moving arms well, occasionally does drop objects. No known neurological degenerative diagnoses. No bowel or bladder complaints. No incontinence of urine or stool. No saddle anesthesia numbness. History of IV contrast allergy for CT scanning. MRI lumbar spine earlier today shows degenerative changes with small disc bulge, ligamentum flavum hypertrophy, mild to moderate left neuroforaminal stenosis, no spinal canal stenosis, multilevel similar changes. CT head noncontrast ordered. Dr. Dominguez communicated with spine surgeon at [facility], anatomically does not fit in with current multifocal symptoms, advised further spinal imaging. CT head noncontrast studies pending at this time. If negative then anticipate holding for further MRI T-spine and cervical spine imaging. Assumed interim care. MRI lumbar spine noncontrast. IMPRESSION: Degenerate changes of the lumbar spine as above, with findings most significant at L5-S1 where there is moderate to severe left neural foraminal narrowing with flattening of the nerve root within the foramen. See radiology report. CT head noncontrast. No acute changes. See radiology report. Discussion with patient about further imaging. She is amenable to staying overnight for further spinal imaging. She had prior problems with IV iodine CT related contrast, not specifically with MRI gadolinium contrast. GFR low however at 32. MRI lumbar spine noncontrast study done above. We will add MRI cervical spine and thoracic spine noncontrast study for now. We will avoid gadolinium contrast for now given low GFR. Additional MRI orders placed. 0700, additional MRI spine imaging to be done later today, prior lumbar MR spine yesterday, MR spine T-spine and cervical spine ordered, noncontrast due to low GFR. Signed out to Dr. Otto. December 06, 2024 at 7:[address] Otto: Sign-out from Dr. Duron, patient here for weakness, MRI lumbar spine completed. Ortho spine contact at [facility]. No urgent transfer. MRI spine lumbar spine completed. However MRI cervical and thoracic spine is ordered. 8:[address] Otto: I spoke with patient and daughter. At this time awaiting for MRI cervical and thoracic spine. She has had progressive weakness in the past couple of weeks. Family has to carry her around it the home. She has tried using a cane as well as a walker without success. No prior history of MS. Physical therapy and social work consult has been placed. They are aware may need rehabilitation center or home health. 8:55 a.m.. I did review with patient, she has a home medications listed on her iPad. She is on amlodipine 5 mg daily. She is on Neurontin 100 mg daily. She takes hydrocodone as needed. 12:40 p.m.. I spoke with [facility] spine surgery, dr domínguez, who would like the patient transferred to their emergency department at [facility] for his evaluation and likely surgery, he has reviewed patient's MRI studies. 12:48 p.m.. I spoke with patient, reviewed with her my discussion with spine surgeon at [facility] and recommending transfer now and he will evaluate her and their emergency department for likely surgery on her spine. She does agree and understand <Aly Otto MD - Last Filed: 12/06/24 18:56> Lab Data Labs: Lab Results 12/05/24 Range/Units 16:53 WBC 7.3 (4.5-11.0) X10^3/uL RBC 3.28 L (4.0-5.2) X10^6/uL Hgb 9.5 L (12.0-16.0) g/dL Hct 28.4 L (36-46) % MCV 86.7 (80-100) fL MCH 29.0 (26-34) PG MCHC 33.4 (30-36) % RDW 12.8 (11.6-14.8) % Plt Count 327 (150-400) X10^3/uL Neut % (Auto) 51.6 (50-75) % Lymph % (Auto) 34.0 (25-40) % Mayes % (Auto) 9.8 (3-14) % Eos % (Auto) 3.8 (2-4) % Baso % (Auto) 0.8 (0-2) % Neut # (Auto) 3800 (5399-1809) /uL Lymph # (Auto) 2500 (0900-4758) /uL Mayes # (Auto) 700 (0-900) /uL Eos # (Auto) 300 (0-450) /uL Baso # (Auto) 100 (0-100) /uL ESR 66 H (0-20) MM/HR PT 11.3 (9.4-12.5) SECONDS INR 1.0 (0.9-1.3) APTT 33 (25.1-36.5) SECONDS Sodium 136 L (137-145) mmol/L Potassium 4.4 (3.4-5.1) mmol/L Chloride 102 (98-107) mmol/L Carbon Dioxide 21 L (22-32) mmol/L BUN 37 H (7-17) mg/dL Creatinine 1.77 H (0.52-1.04) mg/dL Estimated GFR 32 L (>60) mL/min BUN/Creatinine Ratio 20.9 (6-22) Glucose 123 H (70-99) mg/dL Calcium 9.6 (8.4-10.2) mg/dL Magnesium 2.4 H (1.6-2.3) mg/dL Total Bilirubin 0.6 (0.2-1.3) mg/dL AST 32 (14-36) IU/L ALT 27 (<35) IU/L Alkaline Phosphatase 80 (38-126) U/L Total Creatine Kinase 69 (30-135) U/L Troponin I < 0.012 (0.01-0.034) ng/mL C-Reactive Protein < 0.5 (<1.0) mg/dL NT-Pro-B Natriuret Pep 299 H (<125) pg/mL Total Protein 8.5 H (6.3-8.2) g/dL Albumin 4.5 (3.5-5.0) g/dL Globulin 4.0 (1.7-4.1) g/dL Albumin/Globulin Ratio 1.1 (1.0-2.8) Lipase 363 H (23-300) U/L [facility] Narrative Medical decision making narrative: Labs show normal white count of 7.3 hemoglobin is 9.5 consistent with priors platelets are 327. Coags are negative, sodium 136, creatinine is 1.77 with a creatinine of 1.85 in September of 2024. BUN 37 CO2 is 21 glucose is 123, Mag is 2.4 LFTs are normal troponins less than 0.012 with a BNP of 299 and total protein 8.5 lipase is 363. Patient had lumbar spine MR and 07/18/2024 that showed spondylotic changes and bilateral facet arthrosis throat lumbar spine causing first-degree central canal stenosis and bilateral neural foraminal narrowing more notably L4-5 and L5-S1 levels. No marrow edema. No acute compression fracture spondylolisthesis. Patient has mood central canal stenosis at L2-L3 and L4-L5 on MR imaging from July of 2024. Repeat MRI today shows degenerative changes lumbar spine patient has small disc bulge moderate facet and ligamentum flavum hypertrophy [id number] left neural foraminal stenosis no spinal canal stenosis at L2-L3 disc bulge and mild facet and ligamentum flavum hypertrophy mild left neuroforaminal narrowing no spinal canal stenosis. L4-L5 disc bulge with moderate facet and ligament flavum hypertrophy no spinal canal or neural foraminal stenosis. L5-S1 disc bulge with facet and ligamentum flavum hypertrophy causing moderate to severe left foraminal narrowing, mild right neural foraminal narrowing no spinal canal stenosis. Patient has had slowly progressive symptoms based on having pain in her back and her exam L-spine MR was obtained. Patient has had several doses of pain medication Patient's MRI does not show a severe spinal canal stenosis but patient's symptoms are quite significant. Patient does have severe left foraminal narrowing could fit with the patient's significant weakness in his left lower extremity although she notes some discomfort on the right as what. Consult with Orthopedic spinal surgery Dr. Curiel with [facility] at a [address]244. Reviewed patient's physical findings, MR findings he states these are not consistent with her physical exam he would recommend imaging higher up in the spine for further evaluation. Discussed with the patient she is agreeable to board overnight we will obtain head CT initially to make sure no other acute changes and if this is negative we will proceed with the additional MR. Patient signed out to Dr. Duron while awaiting further imaging. 11/19/24, 2300, [place]. Sign-out from Dr. Dominguez. Awaiting further imaging, CT head noncontrast scan report pending, possible MRI T-spine and cervical spine when available later tomorrow morning. 64-year-old female with acute on chronic low back pain, prior MRI of the back juneJuly 2024, no neurosurgical interventions or epidural spinal injections, no known IV drug use or cancers or trauma. For the last 1 week has worsening low back pain, with some radiation to the left leg, with paresthesias and numbness, difficulty standing and walking, some weakness to the left leg on raise testing. Also admits to some weakness in both hands but has been moving arms well, occasionally does drop objects. No known neurological degenerative diagnoses. No bowel or bladder complaints. No incontinence of urine or stool. No saddle anesthesia numbness. History of IV contrast allergy for CT scanning. MRI lumbar spine earlier today shows degenerative changes with small disc bulge, ligamentum flavum hypertrophy, mild to moderate left neuroforaminal stenosis, no spinal canal stenosis, multilevel similar changes. CT head noncontrast ordered. Dr. Dominguez communicated with spine surgeon at [facility], anatomically does not fit in with current multifocal symptoms, advised further spinal imaging. CT head noncontrast studies pending at this time. If negative then anticipate holding for further MRI T-spine and cervical spine imaging. Assumed interim care. MRI lumbar spine noncontrast. IMPRESSION: Degenerate changes of the lumbar spine as above, with findings most significant at L5-S1 where there is moderate to severe left neural foraminal narrowing with flattening of the nerve root within the foramen. See radiology report. CT head noncontrast. No acute changes. See radiology report. Discussion with patient about further imaging. She is amenable to staying overnight for further imaging. She had prior problems with IV iodine CT related contrast, not specifically with MRI gadolinium contrast. GFR low however at 32. MRI lumbar spine noncontrast study done above. We will add MRI cervical spine and thoracic spine noncontrast study for now. We will avoid gadolinium contrast for now given low GFR. Additional MRI orders placed. 0700, additional MRI spine imaging to be done later today, prior lumbar MR spine yesterday, MR spine T-spine and cervical spine ordered, noncontrast due to low GFR. Signed out to Dr. Otto. December 06, 2024 at 7:[address] Otto: Sign-out from Dr. Duron, patient here for weakness, MRI lumbar spine completed. Ortho spine contact at [facility]. No urgent transfer. MRI spine lumbar spine completed. However MRI cervical and thoracic spine is ordered. 8:[address] Otto: I spoke with patient and daughter. At this time awaiting for MRI cervical and thoracic spine. She has had progressive weakness in the past couple of weeks. Family has to carry her around it the home. She has tried using a cane as well as a walker without success. No prior history of MS. Physical therapy and social work consult has been placed. They are aware may need rehabilitation center or home health. 8:55 a.m.. I did review with patient, she has a home medications listed on her iPad. She is on amlodipine 5 mg daily. She is on Neurontin 100 mg daily. She takes hydrocodone as needed. 12:40 p.m.. I spoke with [facility] spine surgery, dr domínguez, who would like the patient transferred to their emergency department at [facility] for his evaluation and likely surgery, he has reviewed patient's MRI studies. 12:48 p.m.. I spoke with patient, reviewed with her my discussion with spine surgeon at [facility] and recommending transfer now and he will evaluate her and their emergency department for likely surgery on her spine. She does agree and understand Discharge Plan Departure Patient Disposition: [facility] Clinical Impression: Spinal stenosis Qualifiers: Spinal region: unspecified Qualified Code(s): M48.00 - Spinal stenosis, site unspecified Prescriptions: No Action oxycodone-acetaminophen 10-325 mg tablet 1 tab PO Q6H PRN (Reason: pain) Qty: 20 0RF (DME) DISABLED PARKING PERMIT See Rx Instructions .ROUTE .MEDSUPPLY Qty: 1 0RF Rx Instructions: I find this patient to be medically disabled and qualified for disabled parking as indicated, and signed, on the accompanying Disabled Parking Application for Individuals. (DME) DISABLED PARKING PERMIT See Rx Instructions .ROUTE .MEDSULY Qty: 1 0RF Rx Instructions: I find this patient to be medically disabled and qualified for disabled parking as indicated, and signed, on the accompanying Disabled Parking Application for Individuals. amlodipine 5 mg tablet 5 mg PO DAILY Qty: 90 1RF Referrals: Brad Lujan DO [Primary Care Provider, Family Practice]
--- NOTE | 2024-12-05 18:28 | DI.MRI.S_ITS ---
PROCEDURE: MR LUMBAR SPINE WO CON INDICATIONS: back pain, loss of sensation, no movement left leg. TECHNIQUE: Noncontrast sagittal T1 spin echo and T2 fast echo, sagittal STIR, and T2 fast spin echo through the lumbar spine. In cases with scoliosis, additional coronal T2 fast spin echo may be performed. COMPARISON: [facility], , MR LUMBAR SPINE WO CON, 08/14/2024, 14:09. FINDINGS: Image quality: Diagnostic Alignment and Curvature: Trace retrolisthesis of L5 on S1. Bone Marrow: Marrow is of normal overall signal. No acute vertebral body compression fractures. Spinal Cord: Conus medullaris terminates at the superior L2 level. Visualized cord demonstrates normal signal and size. Paraspinous Soft Tissues: No paravertebral masses. T12-L1: No spinal canal or neural foraminal stenosis. L1-L2: No spinal canal or neural foraminal stenosis. L2-L3: Small disc bulge and moderate facet and ligamentum flavum hypertrophy. Mild right and moderate left neural foraminal stenosis. No spinal canal stenosis. L3-L4: Disc bulge and mild facet and ligamentum flavum hypertrophy. Mild left neural foraminal narrowing. No spinal canal stenosis. L4-L5: Disc bulge with moderate facet and ligamentum flavum hypertrophy. No spinal canal or neural foraminal stenosis. L5-S1: Disc bulge with facet and ligamentum flavum hypertrophy causing moderate to severe left neural foraminal narrowing. Mild right neural foraminal narrowing. No spinal canal stenosis. IMPRESSION: Degenerate changes of the lumbar spine as above, with findings most significant at L5-S1 where there is moderate to severe left neural foraminal narrowing with flattening of the nerve root within the foramen. Dictated by: Sara Guadarrama M.D. on 12/05/2024 at 21:28 Approved by: Sara Guadarrama M.D. on 12/05/2024 at 21:39
[2024-12-05] MEDS: MORPHINE 4 MG/ML INJ IV ×2 (20:02→21:02)
--- NOTE | 2024-12-05 22:53 | DI.CT.S_ITS ---
PROCEDURE: CT HEAD/BRAIN WO CON INDICATIONS: Left weakness, difficulty walking, + pain, paresthesias, gri TECHNIQUE: Noncontrast 4.5 mm thick angled axial sections acquired from the foramen magnum to the vertex, with coronal and sagittal reformats. For radiation dose reduction, the following was used: automated exposure control, adjustment of mA and/or kV according to patient size. COMPARISON: [facility], MR, MR HEAD/BRAIN WO CON, 08/14/2024, 13:17. FINDINGS: Image quality: Diagnostic. CSF spaces: Basal cisterns are patent. No extra-axial fluid collections. Ventricles are normal in size and shape. Brain: No midline shift. No intracranial mass effect or hemorrhage. Basal ganglia calcification. Medial cerebellar calcification. No area of hypodensity in a large vascular distribution to suggest acute infarction. Periventricular hypodensity consistent with chronic microvascular ischemic change. Age-related parenchymal loss. Skull and face: Calvarium and visualized facial bones are intact, without suspicious lesions. Sinuses: Ethmoid mucosal thickening. Visualized sinuses and mastoids are otherwise clear. IMPRESSION: No acute intracranial pathology. Dictated by: Viktor Chinchilla M.D. on 12/06/2024 at 0:52 Approved by: Viktor Chinchilla M.D. on 12/06/2024 at 0:55
[2024-12-06] VITALS (25 sets, daily range): BP systolic 156–228; BP diastolic 78–104; PULSE 88–106; RESP 16–17; O2SAT 96–100
--- NOTE | 2024-12-06 01:38 | DI.MRI.S_ITS ---
PROCEDURE: MR THORACIC SPINE WO CON INDICATIONS: lower>upper ext weak, GFR 32 TECHNIQUE: Noncontrast sagittal T1 spine echo and T2 fast spin echo, sagittal STIR, and T2 fast spin echo through the thoracic spine. COMPARISON: [facility], MR, MR LUMBAR SPINE WO CON, 08/14/2024, 14:09. [facility], MR, MR LUMBAR SPINE WO CON, 12/05/2024, 18:40. [facility], MR, MR CERVICAL SPINE WO CON, 12/06/2024, 9:28. FINDINGS: Image quality: Excellent. Alignment and Curvature: Accentuated thoracic kyphosis is seen. No focal AP alignment abnormality is seen. Bone Marrow: Marrow is of normal overall signal. At the T10 level, there is a 12 mm focus seen that demonstrates increased STIR signal, as on series 8, image 8. There is decreased T1 weighted signal and increased T2 weighted signal. No acute vertebral body compression fractures. Spinal Cord: Visualized spinal cord is normal in size and signal. Paraspinous Soft Tissues: No paravertebral masses. Miscellaneous: Generalized epidural lipomatosis can be seen involving the entire thoracic spine, which is best demonstrated on series 7 images 7 and 8. This process is most prominent within the mid thoracic spine, however. There is generalized moderate central canal narrowing within the mid thoracic spine. At the T7-T8 level, there is a central disc protrusion, with moderate central canal narrowing and moderate mass effect upon the ventral spinal cord. At the T8-T9 level, there is a central/right disc protrusion, with moderate central canal narrowing and [id number] the mass effect upon the ventral spinal cord. Milder degenerative changes are seen elsewhere. Several levels of mild neural foraminal narrowing can be seen involving the mid to lower thoracic spine. IMPRESSION: Epidural lipomatosis seen throughout the thoracic spine. Degenerative changes are seen, which are worst at T7-T8 and T8-T9. At the T10 level, there is an 11 mm focus seen, which is mildly suspicious for metastatic disease, although differential diagnosis includes an atypical vertebral body hemangioma. - As a conservative measure, please consider a follow-up nuclear medicine bone scan for further evaluation. Dictated by: Yassine Anders M.D. on 12/06/2024 at 9:42 Approved by: Yassine Anders M.D. on 12/06/2024 at 9:48
--- NOTE | 2024-12-06 01:38 | DI.MRI.S_ITS ---
PROCEDURE: MR CERVICAL SPINE WO CON INDICATIONS: lower>upper ext weakness TECHNIQUE: Noncontrast sagittal T1 spin echo and T2 fast spin echo, sagittal STIR, foraminal oblique sagittal T2 fast spin echo, and axial gradient echo or T2 fast spin echo through the cervical spine. COMPARISON: None. FINDINGS: Image quality: Excellent. Alignment and Curvature: There is loss of normal cervical lordosis. 2 mm of retrolisthesis of C3 on C4. 2 mm of anterolisthesis of C4 on C5. 3 mm of retrolisthesis of C5 on C6. 2 mm of retrolisthesis of C6 on C7. Bone Marrow: Marrow demonstrates normal overall signal. Moderate reactive signal within the endplates adjacent to the C5-C6 and C6-C7 intervertebral discs. Mild reactive signal within the remaining cervical and upper thoracic endplates. Spinal Cord: Visualized spinal cord has normal size and signal. No cerebellar tonsillar herniation. Paraspinous Soft Tissues: No paravertebral masses. Prevertebral soft tissues are normal in thickness. C2-C3: Congenital canal stenosis. Mild disc desiccation. Mild facet and uncovertebral hypertrophy. Mild canal stenosis. Mild bilateral foraminal stenosis. C3-C4: Congenital canal stenosis. Moderate disc desiccation. Mild diffuse disc bulge. Mild facet and uncovertebral hypertrophy. Moderate canal stenosis. Moderate bilateral foraminal stenosis. C4-C5: Moderate disc desiccation. Mild diffuse disc bulge. Congenital canal stenosis. Mild facet and uncovertebral hypertrophy. Moderate to severe canal stenosis. Severe left and moderate right foraminal stenosis. Left C5 nerve root compression. C5-C6: Congenital canal stenosis. Mild disc height loss. Moderate disc desiccation. Mild diffuse disc bulge. Mild facet and uncovertebral hypertrophy. Severe canal stenosis. Minimal anterior cord flattening. Severe right greater than left foraminal stenosis with right greater than left C6 nerve root compression. C6-C7: Congenital canal stenosis. Moderate disc height loss and desiccation. Moderate diffuse disc bulge. Moderate facet and uncovertebral hypertrophy. Severe canal stenosis. Mild cord flattening. Severe bilateral foraminal stenosis with bilateral C7 nerve root compression. C7-T1: Congenital canal stenosis. Mild disc desiccation and diffuse disc bulge. Mild facet and uncovertebral hypertrophy. Mild canal stenosis. Mild bilateral foraminal stenosis. IMPRESSION: 1. No acute process. 2. Diffuse congenital canal stenosis with superimposed disc and facet disease, as well as uncovertebral hypertrophy. 3. Multilevel canal stenoses, worst at C5-C6 and C6-C7 where there is mild cord flattening. 4. Multilevel foraminal stenoses, worst at C4-C5, C5-C6, and C6-C7 where there is associated intraforaminal nerve root compression. Recommend correlation with clinical symptoms to ascertain relevance of this finding. Dictated by: Manuel Monzon M.D. on 12/06/2024 at 10:33 Approved by: Manuel Monzon M.D. on 12/06/2024 at 10:40
[2024-12-06] MEDS: hydrALAZINE 20 MG/ML VIAL 5 MG IV (06:21)
[2024-12-06] MEDS: GABAPENTIN 100 MG CAPSULE PO (09:03)
--- NOTE | 2024-12-06 11:15 | PC.NURSE ---
Report received, care assumed.
--- NOTE | 2024-12-06 11:20 | PT.IIE ---
Surgical History (Last Reviewed 12/05/24 @ 18:55 by Kristen Dominguez DO) Anesthesia History of cataract removal with insertion of prosthetic lens (~2019) History of cervical cerclage History of tonsillectomy History of tubal ligation (~11/03/96) Medical History (Last Reviewed 12/05/24 @ 18:55 by Kristen Dominguez DO) Acute low back pain with right-sided sciatica Asthma (~1984) Bilateral hand numbness Combined hyperlipidemia associated with type 2 diabetes mellitus Diabetes type 2 Diabetic nephropathy associated with type 2 diabetes mellitus Frequent falls Frequent UTI Hx of colonic polyps Partial blindness Physical Therapy Inpatient Evaluation/Re-Eval M1 PT/OT-IP Prior Functional Status Start: 12/06/24 13:50 Freq: Status: Active Protocol: Document 12/06/24 11:20 AB (Rec: 12/06/24 14:06 AB [id number]) Medical Review Prior Functional Status Medical History Yes Reviewed Communication able to make needs known Mobility and Gait pt stated that she has been using a tripod cane a few years due to h/o falls but then switched into using a 4WW last October and was mod I with ambulation with 4WW. pt started to decline in mobility ~ 3 weeks ago wherein she is not able to stand and walk and her son or daughter picks her up to transfer on 4WW and wheels her to the toilet and back. pt stated that she falls ~ 2-3x/week Social History Household Members children Living Arrangements House Number of Floors ( Two Floors Floors) Number of Stairs To 2 steps without rails to enter Enter/Railing? 7 steps + 7 steps +7steps R rail ascending to bedroom level pt can stay on main level of the house if needed Home Environment Standard Height Toilet,Walk in Shower Home Equipment Four Wheel Walker,Shower Seat with Backrest,Hand Held Shower Additional Social has a tripod cane History Comment pt has been sleeping on a recliner chair M2 PT-IP Current Condition Start: 12/06/24 13:50 Freq: Status: Active Protocol: Document 12/06/24 11:20 AB (Rec: 12/06/24 14:06 AB [id number]) Physical Therapy Current Condition Current Condition Evaluation Date 12/06/24 Treatment Diagnosis back pain; difficulty in walking Onset Date 12/06/24 M3 PT-IP Subjective Start: 12/06/24 13:50 Freq: Status: Active Protocol: Document 12/06/24 11:20 AB (Rec: 12/06/24 14:06 AB [id number]) Subjective Physical Therapy Visit Type Type Initial Evaluation Visit Start Time 11:20 Visit Stop Time 12:35 Number of INSTALLATION SPECIALIST Visits 0 Physical Therapy Visit Comments Patient Comments agreeable to do PT Therapy Pain Assessment Pain When Pain Assessed At Rest Pain Present Pain Present Pain Reported Location left leg Intensity 7 Scale Used Numeric (0 - 10) Pain Management Distraction,Modification of Treatment,Re-positioning, Techniques Timing of Activity with Medications M4 PT-IP Mobility and Gait Start: 12/06/24 13:50 Freq: Status: Active Protocol: Document 12/06/24 11:20 AB (Rec: 12/06/24 14:06 AB [id number]) PT-Bed Mobility Assessment Rolling Type of Rolling Log Rolling Level of Assist Maximal Assistance,2 Person Assistance Supine to Sit Supine to Sit Maximum Assistance,2 Person Assistance Sit to Supine Sit to Supine Maximum Assistance,2 Person Assistance PT-Transfer Assessment Sit to and From Stand Sit to and from Maximum Assistance,2 Person Assistance,Use of Upper Stand Extremities Equipment Transfer Assistive Gait Belt,Front Wheeled Walker Device Orthotic/Prosthetic No Devices or Brace: Comments Mobility Comments pt seen in the ED. pt in bed and daughter in room. obtained PLOF and home set up. BP: 188/96 O2 sat: 98% [place]: 112. pt with c/o 7/10 LLE pain and numbness. completed log roll supine to sit max A x 2 and max cues . max A for scooting to EOB. able to sit on EOB CGA. sit to stand max Ax 2 and max cues. LE leaning against the bed for support. max A x 2 for standing balance using FWW for support. pt sat back on EOB. agreed to get up again. sit to stand max A x 2 and max cues. instructed to take side steps towards HOB. attempted to take a step but pt unable to move LLE. max A x 2 for scooting towards HOB. max A x 2 for log roll sit to supine. positioned pt in bed. call light and table placed within reach. informed ED doctor and social science analyst regarding pt's mobility and SNF rehab. Gait Assessment Comments Gait Comments unable at this time PT-Balance Assessment Sitting Balance and Reactions Static Sitting Fair Balance Ability Dynamic Sitting Fair Balance Ability Standing Balance and Reactions Static Standing Poor Balance Ability Dynamic Standing Poor Balance Ability Device Used FWW M5 PT-IP Objective Assessments Start: 12/06/24 13:50 Freq: Status: Active Protocol: Document 12/06/24 11:20 AB (Rec: 12/06/24 14:06 AB [id number]) Orientation Orientation/Cognition Level of Alertness Alert Orientation Name,Situation Language Function No Deficits Noted Ability Safety Awareness Decreased Safety Awareness Memory Description No Deficits Noted Gross Range of Motion Lower Extremity ROM Assessment Within Functional Limits Strength Lower Extremity Strength Assessment Bilaterally Impaired Comments Strength Comments RLE: 3-/5 LLE: 1/5 Sensation Assessment Sensation Sensation Numbness Description Comments Sensation Comments c/o LLE numbness Muscle Tone Muscle Tone WNL Yes M6 PT-IP Treatment Start: 12/06/24 13:50 Freq: Status: Active Protocol: Document 12/06/24 11:20 AB (Rec: 12/06/24 14:06 AB [id number]) Physical Therapy Treatment Education Education Provided Safety M7 PT-IP Assessment and Plan Start: 12/06/24 13:50 Freq: Status: Active Protocol: Document 12/06/24 11:20 AB (Rec: 12/06/24 14:06 AB [id number]) PT Summary Assessment and Plan Potential Rehabilitation Fair Potential Status of Condition Unstable at Evaluation Summary Impairments Pain,ROM,Strength,Balance,Coordination,Sensation,Tone, Cognition,Bed Mobility,Transfers,Gait,Activity Tolerance Assessment Summary pt seen in the ED. pt is a 64 y/o F with c/o LBP radiating towards BLE with L pain>R. pt presents with weakness on BUE and BLE and needing max A x 2 for bed mobility and sit to stand. pt unable to take steps to transfer or ambulate at this time. pt will require SNF rehab to improve overall strength and function. pt will also need OT. Goals Bed Mobility Goal Minimal Assistance Transfer Goal Moderate Assistance,Front Wheeled Walker Gait Goal Moderate Assistance,Front Wheel Walker Gait Distance 25 Days to Meet Goals 10 Frequency of Treatment Frequency Of Once a Day Treatment Treatment Plan Physical Therapy Bed Mobility Training,Transfer Training,Gait Training, Treatment Plan Therapeutic Exercise,Balance Retraining,Discharge Planning,Hot or Cold Pack,Neuromuscular Re-ed, Coordination Retraining,Manual Therapy Precautions Lumbar Precautions Log Roll,No Twisting,Limit Bending,Lifting Restriction of 10 lbs Recommendations To Nursing Amount of Assist Mechanical Lift Needed Discharge Recommendations PT Discharge SNF Rehab Recommendations Transportation Needs Wheelchair/Cabulance,Stretcher/Ambulance at Discharge - PT assist 2
--- NOTE | 2024-12-06 12:45 | CM.SWNOTE ---
ED SPINE SUPERVISOR Assessment Note: Pt is a 64yo male, resident of [place], is seen in the ED for inability to walk, weakness, extremity numbness. Pt lives in a house with her adult children. Pt's Primary Care Provider is Dr. Brad Lujan and insurance is Medicare and [employer]. Reviewed chart and discussed with multidisciplinary team pt's medical status and initial discharge needs. SPINE SUPERVISOR consulted for possible discharge planning to SNF or home health due to pt not able to care for self. Per PT evaluation, pt recommended for SNF rehab. Per PT, pt has apparent muscle atrophy and this is because they have not been able to move in 3 weeks, their children lifts patient around the house. Prior to that, they were utilizing a cane and falling at least 3x/week. After PT evaluation, [facility] accepts pt for ED-to-ED transfer. No discharge needs identified at this time due to transfer. Plan: Pt to transfer to [facility] ED for higher level of care. ADELAIDE Rodriguez
== END 2024-12-06 14:00 | disposition short-term general hospital (02) ==
PROVIDERS: Emergency Medicine; Emergency Provider Emergency Medicine; PCP Family Medicine
DX: M48.07 Spinal stenosis, lumbosacral region (principal); R53.1 Weakness; R07.9 Chest pain, unspecified
CPT/HCPCS: 36415; 70450; 71045; 72141; 72146; 72148; 80053; 82550; 83690; 83735; 83880; 84484; 85025; 85610; 85651; 85730; 86140; 93005; 93010; 96374; 96375; 96376; 97163; 97530; 99284; J0360; J2272